=== PATIENT | female | born 1985 | race Caucasian/White ===

== ENCOUNTER 2020-04-22 09:46 | Day surgery (SDC) | payer OTHER, SELFPAY ==
[~2020-04-22] VITALS: Ht 170.2 cm; Wt 132.9 kg
[~2020-04-22 09:46] MED LIST: FERR-212 PO; IBUP-974 PO; PREN-508 PO
== END 2020-04-22 13:15 | disposition home or self-care (01) ==
LOC: MDS 09:46 → MFCC 09:46 → MDS 12:40
PROVIDERS: ATTEND Surgery
DX: R22.1 Localized swelling, mass and lump, neck (principal); Z20.828 Contact with and (suspected) exposure to other viral communicable diseases; Z53.8 Procedure and treatment not carried out for other reasons
CPT/HCPCS: 36415; 71045; 81025; 84132; J0690; J7060; Q0092; U0003

== ENCOUNTER 2021-08-04 10:18 | Emergency (ER) | payer OTHER, SELFPAY ==
[~2021-08-04] VITALS: Ht 166.4 cm; Wt 120.2 kg
[2021-08-04 10:32] VITALS: BP 155/91
--- NOTE | 2021-08-04 10:44 | NUR ---
pt triaged and sent to lobby. gave orange juice for low glucose.
[2021-08-04 12:39] LABS: BASOPHILS % (AUTO) 0.5 % (0.0-2.0); EOSINOPHILS % (AUTO) 0.6 % (0.0-4.0); HEMATOCRIT 37.6 % (36-48); HEMOGLOBIN 12.2 g/dL (12.0-16.0); LYMPHOCYTES % (AUTO) 36.1 % (20.5-51.1); MEAN CORPUSCULAR HEMOGLOBIN 26 pg (27-31); MEAN CORPUSCULAR HGB CONC 32 g/dL (33-37); MEAN CORPUSCULAR VOLUME 79.2 fL (80-94); MONOCYTES # (AUTO) 0.7 K/uL (0.8-1.0); MONOCYTES % (AUTO) 8.5 % (1.7-9.3); NEUTROPHILS # (AUTO) 4.5 K/uL (1.8-7.7); NEUTROPHILS % (AUTO) 54.3 % (42.2-75.2); PLATELET COUNT (AUTO) 292 K/uL (140-450); RED BLOOD CELL COUNT(AUTO) 4.74 MIL/uL (4.20-5.40); RED CELL DISTRIBUTION WIDTH 16.7 % (11.6-13.7); WHITE BLOOD COUNT (AUTO) 8.3 K/uL (4.8-10.8)
[2021-08-04 12:59] LABS: ALBUMIN 3.7 g/dL (3.4-5.0); ANION GAP 14.8 (8-16); CARBON DIOXIDE 25.3 mmol/L (21-32); CREATININE 0.7 mg/dL (0.6-1.3); POTASSIUM 5.1 mmol/L (3.5-5.1); TOTAL BILIRUBIN 0.3 mg/dL (0.0-1.0)
[2021-08-04] MEDS ORDERED: CEPH500C16 PO (13:57)
[2021-08-04] MEDS ORDERED: ACET-9800 PO (13:57)
--- NOTE | 2021-08-04 15:11 | NUR ---
Patient discharged with v/s stable. Written and verbal after care instructions given and explained. Patient alert, oriented and verbalized understanding of instructions. Ambulatory with steady gait. All questions addressed prior to discharge. ID band removed. Patient advised to follow up with PMD. Rx of Cephalexin and Tylenol given. Patient educated on indication of medication including possible reaction and side effects. Opportunity to ask questions provided and answered.
== END 2021-08-04 15:11 | disposition home or self-care (01) ==
LOC: MED 10:18
DX: O23.41 Unspecified infection of urinary tract in pregnancy, first trimester (principal); R10.2 Pelvic and perineal pain; Z3A.01 Less than 8 weeks gestation of pregnancy; Z79.899 Other long term (current) drug therapy
CPT/HCPCS: 36415; 76801; 76830; 80053; 81002; 81025; 83690; 84702; 85025; 99284; Q0092

== ENCOUNTER 2021-08-12 13:44 | Emergency (ER) | payer OTHER, SELFPAY ==
[~2021-08-12] VITALS: Ht 170.2 cm; Wt 120.2 kg
[~2021-08-12 13:44] MED LIST changes: +ACET-9800 PO; +CEPH500C16 PO
[2021-08-12 13:51] VITALS: BP 153/86
[2021-08-12 14:52] LABS: APPEARANCE,URINE CLEAR (CLEAR); BASOPHILS % (AUTO) 0.4 % (0.0-2.0); BILIRUBIN,URINE NEGATIVE (NEGATIVE); BLOOD, URINE 3+ (NEGATIVE); COLOR,URINE YELLOW (YELLOW); EOSINOPHILS # (AUTO) 0.1 K/uL (0-0.4); EOSINOPHILS % (AUTO) 0.8 % (0.0-4.0); HEMATOCRIT 34.9 % (36-48); HEMOGLOBIN 11.4 g/dL (12.0-16.0); LEUKOCYTE ESTERASE ,URINE TRACE (NEGATIVE); LYMPHOCYTES # (AUTO) 2.6 K/uL (2.5-16.5); LYMPHOCYTES % (AUTO) 31.6 % (20.5-51.1); MEAN CORPUSCULAR HEMOGLOBIN 26 pg (27-31); MEAN CORPUSCULAR HGB CONC 33 g/dL (33-37); MEAN CORPUSCULAR VOLUME 79.5 fL (80-94); MONOCYTES # (AUTO) 0.9 K/uL (0.8-1.0); MONOCYTES % (AUTO) 11.6 % (1.7-9.3); NEUTROPHILS # (AUTO) 4.5 K/uL (1.8-7.7); NEUTROPHILS % (AUTO) 55.6 % (42.2-75.2); NITRITE, URINE NEGATIVE (NEGATIVE); PLATELET COUNT (AUTO) 268 K/uL (140-450); RED BLOOD CELL COUNT(AUTO) 4.39 MIL/uL (4.20-5.40); RED CELL DISTRIBUTION WIDTH 16.5 % (11.6-13.7); UGLUCOSE NEGATIVE (NEGATIVE); WHITE BLOOD COUNT (AUTO) 8.1 K/uL (4.8-10.8)
[2021-08-12 15:52] LABS: RBC,URINE 20-50 /HPF (0-5); WBC,URINE 0-5 /HPF (0-5)
--- NOTE | 2021-08-12 16:00 | NUR ---
pt c/o vaginal bleeding and cramping approx 8 weeks . pending er md wallace.
--- NOTE | 2021-08-12 17:00 | NUR ---
us at bedside
[2021-08-12 18:16] VITALS: BP 110/68
--- NOTE | 2021-08-12 18:16 | NUR ---
Patient discharged with v/s stable. Written and verbal after care instructions given and explained. Patient verbalized understanding. Ambulatory with steady gait. All questions addressed prior to discharge. Advised to follow up with PMD.
== END 2021-08-12 18:16 | disposition home or self-care (01) ==
LOC: MED 13:44
DX: O03.9 Complete or unspecified spontaneous abortion without complication (principal); Z79.899 Other long term (current) drug therapy
CPT/HCPCS: 36415; 76817; 81001; 81025; 84702; 85025; 99284; Q0092

== ENCOUNTER 2022-01-06 11:38 | Emergency (ER) | payer OTHER ==
[~2022-01-06] VITALS: Ht 166.4 cm; Wt 123.0 kg
[2022-01-06 11:41] VITALS: BP 153/79
--- NOTE | 2022-01-06 11:48 | NUR ---
PT AMB TO BED 12
--- NOTE | 2022-01-06 12:00 | NUR ---
36 Y/O FEMALE C/O LEFT LOWER LEG PAIN 04/04, BRUISING, SWELLING X1DAY. PT C/O OF HEADACHE 05/05 DESCSRIBES THROBBING [id number]. DENIES TRAUMA/INJURY. DENIES FEVER/CHILLS. DENIES N/V/D. DENIES PMH NKA
--- NOTE | 2022-01-06 12:05 | NUR ---
DR. ISRAEL AT PT BEDSIDE FOR FURTHER EVALUATION.
[2022-01-06] MEDS ORDERED: ACETAMINOPHEN EXTRA STRENGTH 500 MG TAB PO ONE (12:10)
--- NOTE | 2022-01-06 13:41 | NUR ---
PT RESTING IN BED, HOB LOWERED FOR COMFORT, VSS, WILL CONTINUE TO MONITOR.
[2022-01-06] MEDS ORDERED: ACET-10509 PO (13:48)
[2022-01-06 14:10] VITALS: BP 121/79
--- NOTE | 2022-01-06 14:11 | NUR ---
Patient discharged with v/s stable. Written and verbal after care instructions given FOR CONTUSION and explained. Patient alert, oriented and verbalized understanding of instructions. Ambulatory with steady gait. All questions addressed prior to discharge. ID band removed. Patient advised to follow up with PMD. Rx of TYNENOL given. Patient educated on indication of medication including possible reaction and side effects. Opportunity to ask questions provided and answered.
== END 2022-01-06 14:11 | disposition home or self-care (01) ==
LOC: MED 11:38
DX: S80.12XA Contusion of left lower leg, initial encounter (principal); G44.209 Tension-type headache, unspecified, not intractable; E11.9 Type 2 diabetes mellitus without complications; Z79.899 Other long term (current) drug therapy; X58.XXXA Exposure to other specified factors, initial encounter; Y93.89 Activity, other specified; Y92.89 Other specified places as the place of occurrence of the external cause; Y99.8 Other external cause status
CPT/HCPCS: 93971; 99284; Q0092

== ENCOUNTER 2022-03-04 14:55 | Emergency (ER) | payer OTHER ==
[~2022-03-04] VITALS: Ht 169.4 cm; Wt 124.7 kg
[~2022-03-04 14:55] MED LIST changes: +ACET-10509 PO
[2022-03-04 15:02] VITALS: BP 153/79
[2022-03-04] MEDS ORDERED: TOMOMETER 1 DEV DEV MC ONE (16:39)
[2022-03-04] MEDS ORDERED: TETRACAINE HCL/PF 0.5% OPTH 4 ML BTL OP ONE (16:55)
[2022-03-04] MEDS ORDERED: ERYT5OIN58 OP (17:14)
[2022-03-04] MEDS ORDERED: IBUP-1842 PO (17:15)
[2022-03-04 17:20] VITALS: BP 120/65
== END 2022-03-04 17:20 | disposition home or self-care (01) ==
LOC: MED 14:55
DX: H10.9 Unspecified conjunctivitis (principal); E11.9 Type 2 diabetes mellitus without complications; Z79.4 Long term (current) use of insulin; Z79.899 Other long term (current) drug therapy
CPT/HCPCS: 99283

== ENCOUNTER 2022-05-22 23:29 | Emergency (ER) | payer OTHER ==
[~2022-05-22] VITALS: Ht 170.2 cm; Wt 125.6 kg
[~2022-05-22 23:29] MED LIST changes: +ERYT5OIN58 OP; +IBUP-1842 PO
[2022-05-22 23:38] VITALS: BP 136/88
[2022-05-23 00:23] LABS: BASOPHILS % (AUTO) 0.7 % (0.0-2.0); EOSINOPHILS # (AUTO) 0.1 K/uL (0-0.4); EOSINOPHILS % (AUTO) 1.3 % (0.0-4.0); HEMATOCRIT 36.9 % (36-48); HEMOGLOBIN 12.1 g/dL (12.0-16.0); LYMPHOCYTES # (AUTO) 2.6 K/uL (2.5-16.5); LYMPHOCYTES % (AUTO) 45.6 % (20.5-51.1); MEAN CORPUSCULAR HEMOGLOBIN 27 pg (27-31); MEAN CORPUSCULAR HGB CONC 33 g/dL (33-37); MEAN CORPUSCULAR VOLUME 81.7 fL (80-94); MONOCYTES # (AUTO) 0.7 K/uL (0.8-1.0); MONOCYTES % (AUTO) 12.1 % (1.7-9.3); NEUTROPHILS # (AUTO) 2.3 K/uL (1.8-7.7); NEUTROPHILS % (AUTO) 40.3 % (42.2-75.2); PLATELET COUNT (AUTO) 244 K/uL (140-450); RED BLOOD CELL COUNT(AUTO) 4.51 MIL/uL (4.20-5.40); RED CELL DISTRIBUTION WIDTH 15.4 % (11.6-13.7); WHITE BLOOD COUNT (AUTO) 5.8 K/uL (4.8-10.8)
--- NOTE | 2022-05-23 00:28 | NUR ---
PATIENT AMBULATED TO BED 8
--- NOTE | 2022-05-23 00:33 | NUR ---
36/F BIB SELF C/C EPIGASTRIC PAIN X2 WEEKS. PER PATIENT PAIN IS 5/10 AND SHARP. +N/V/D. DENIES SOB, CP, CHILLS, AND FEVER. PATIENT STATED THAT X3 WEEKS AGO SHE BEGAN TAKING WT LOSS MEDS AND STOPPED TAKING METFORMIN. PMHX DM
[2022-05-23 00:40] LABS: ALBUMIN 3.7 g/dL (3.4-5.0); ANION GAP 11.9 (8-16); CARBON DIOXIDE 26.8 mmol/L (21-32); CHLORIDE 104 mmol/L (98-107); CREATININE 0.8 mg/dL (0.6-1.3); GFR ARICAN-AMERICAN 103 mL/min (>90); GLUCOSE 81 mg/dL (74-106); LIPASE 117 U/L (73-393); POTASSIUM 4.7 mmol/L (3.5-5.1); SODIUM SERUM 138 mmol/L (136-145); TOTAL BILIRUBIN 0.3 mg/dL (0.0-1.0); UREA NITROGEN, BLOOD 9 mg/dL (7-18)
--- NOTE | 2022-05-23 01:26 | NUR ---
Note camila in EDM - 05/23/22 at 0228 by THERESA Patient discharged with v/s stable. Written and verbal after care instructions given and explained. Patient alert, oriented and verbalized understanding of instructions. Ambulatory with steady gait. All questions addressed prior to discharge. ID band removed. Patient advised to follow up with PMD. Rx of PROVERA given.
--- NOTE | 2022-05-23 02:29 | NUR ---
PATIENT AMBULATED TO RR
--- NOTE | 2022-05-23 03:19 | NUR ---
Dr. Gaspar examining patient.
[2022-05-23] MEDS ORDERED: KETOROLAC 60 MG/2 ML VIAL IM ONE (03:25)
[2022-05-23] MEDS ORDERED: ONDANSETRON 4 MG ODT PO ONE (03:25)
[2022-05-23] MEDS ORDERED: ONDA8TAB87 PO (03:26)
[2022-05-23] MEDS ORDERED: IBUP-2213 PO (03:26)
[2022-05-23] MEDS ORDERED: OMEP40EC24 PO (03:26)
[2022-05-23 03:44] VITALS: BP 127/69
--- NOTE | 2022-05-23 03:44 | NUR ---
The patient's care was reviewed and supervised by Alicja Aguirre RN.
--- NOTE | 2022-05-23 03:44 | NUR ---
Patient discharged with v/s stable. Written and verbal after care instructions given and explained. Patient alert, oriented and verbalized understanding of instructions. Ambulatory with steady gait. All questions addressed prior to discharge. ID band removed. Patient advised to follow up with PMD. Rx of Ibuprofen, Omeprazole and Zofran given. Patient educated on indication of medication including possible reaction and side effects. Opportunity to ask questions provided and answered.
== END 2022-05-23 03:44 | disposition home or self-care (01) ==
LOC: MED 23:29
DX: R10.13 Epigastric pain (principal); R11.2 Nausea with vomiting, unspecified; E11.9 Type 2 diabetes mellitus without complications; Z79.899 Other long term (current) drug therapy; Z79.1 Long term (current) use of non-steroidal anti-inflammatories (NSAID); Z79.2 Long term (current) use of antibiotics
CPT/HCPCS: 36415; 80053; 81002; 81025; 83690; 85025; 96372; 99285; J1885; Q0162

== ENCOUNTER 2023-05-08 20:08 | Emergency (ER) | payer OTHER ==
[~2023-05-08] VITALS: Ht 170.2 cm; Wt 117.5 kg
[~2023-05-08 20:08] MED LIST changes: +IBUP-2213 PO; +OMEP40EC24 PO; +ONDA8TAB87 PO
[2023-05-08 20:31] VITALS: BP 151/98; PULSE 83; RESP 20; TEMP 98.7; O2SAT 98
[2023-05-08 23:19] LABS: BASOPHILS # (AUTO) 0.1 K/uL (0.00-0.22); BASOPHILS % (AUTO) 0.7 % (0.0-2.0); EOSINOPHILS # (AUTO) 0.1 K/uL (0-0.4); HEMATOCRIT 34.9 % (36-48); HEMOGLOBIN 11.6 g/dL (12.0-16.0); LYMPHOCYTES # (AUTO) 2.2 K/uL (2.5-16.5); LYMPHOCYTES % (AUTO) 30.3 % (20.5-51.1); MEAN CORPUSCULAR HEMOGLOBIN 26 pg (27-31); MEAN CORPUSCULAR HGB CONC 33 g/dL (33-37); MEAN CORPUSCULAR VOLUME 78.6 fL (80-94); MONOCYTES # (AUTO) 0.6 K/uL (0.8-1.0); MONOCYTES % (AUTO) 8.8 % (1.7-9.3); NEUTROPHILS # (AUTO) 4.3 K/uL (1.8-7.7); NEUTROPHILS % (AUTO) 58.2 % (42.2-75.2); PLATELET COUNT (AUTO) 284 K/uL (140-450); RED BLOOD CELL COUNT(AUTO) 4.44 MIL/uL (4.20-5.40); RED CELL DISTRIBUTION WIDTH 15.8 % (11.6-13.7); WHITE BLOOD COUNT (AUTO) 7.3 K/uL (4.8-10.8)
[2023-05-08 23:20] LABS: ALBUMIN 3.7 g/dL (3.4-5.0); ANION GAP 14.1 (8-16); CARBON DIOXIDE 24.1 mmol/L (21-32); CREATININE 0.9 mg/dL (0.6-1.3); POTASSIUM 4.2 mmol/L (3.5-5.1); TOTAL BILIRUBIN 0.4 mg/dL (0.0-1.0); TOTAL PROTEIN, SERUM 7.7 g/dL (6.4-8.2)
[2023-05-09 00:53] VITALS: O2SAT 100
[2023-05-09 01:56] LABS: APPEARANCE,URINE CLEAR (CLEAR); BILIRUBIN,URINE NEGATIVE (NEGATIVE); BLOOD, URINE 3+ (NEGATIVE); COLOR,URINE YELLOW (YELLOW); LEUKOCYTE ESTERASE ,URINE NEGATIVE (NEGATIVE); NITRITE, URINE NEGATIVE (NEGATIVE); PROTEIN,URINE NEGATIVE (NEGATIVE); UGLUCOSE NEGATIVE (NEGATIVE); UROBILINOGEN,URINE 0.2 EU/dL (0.2 - 1)
[2023-05-09 02:00] LABS: BACTERIA,URINE >30 (MANY) /HPF (None Seen); MUCUS,URINE 1+ /LPF (None Seen); SQUAMOUS EPITHELIAL CELL,UR 0-3 (FEW) /LPF (0-3 (FEW))
[2023-05-09] MEDS ORDERED: HYDROmorphone PFS 2 MG/ML SYR IVP ONE (03:25)
[2023-05-09 04:05] VITALS: O2SAT 99
[2023-05-09] MEDS ORDERED: ACETAMINOPHEN EXTRA STRENGTH 500 MG TAB PO ONE (04:35)
[2023-05-09] MEDS ORDERED: diazePAM 5 MG TAB PO ONE (04:35)
[2023-05-09 06:53] VITALS: O2SAT 99
[2023-05-09] MEDS ORDERED: CEPH-588 PO ×2 (07:48→08:17)
[2023-05-09] MEDS ORDERED: ACET-10509 PO ×2 (07:48→08:17)
[2023-05-09] MEDS ORDERED: HYDROcodone/APAP 10/325 MG 1 TAB TAB ONE (08:08)
[2023-05-09] MEDS ORDERED: HYDROcodone/APAP 10/325 MG 1 TAB TAB PO ONE (08:10)
[2023-05-09 08:28] VITALS: BP 112/64; PULSE 62; RESP 18; TEMP 98; O2SAT 99
== END 2023-05-09 08:28 | disposition home or self-care (01) ==
LOC: MED 20:08
DX: N39.0 Urinary tract infection, site not specified (principal); M54.50 Low back pain, unspecified; R10.32 Left lower quadrant pain; Z79.899 Other long term (current) drug therapy
CPT/HCPCS: 36415; 74177; 80053; 81001; 81025; 83690; 85025; 87086; 96374; 99285; J1170; Q9967